=== PATIENT | male | born 1960 | race Caucasian/White ===

== ENCOUNTER 2019-03-07 07:51 | Day surgery (SDC) | payer BC ==
[2019-03-06 13:55] VITALS: BMI 24.9
[2019-03-07 09:52] VITALS: TEMP 97.9
[2019-03-07 12:16] VITALS: BP 116/71; PULSE 63
--- NOTE | 2019-03-10 14:12 | PATH ---
Surgical Pathology Report Patient Name: GRISELDA ARANA [facility]. Rec. #: [id number] /Age/Gender: 1960 (Age: 58) / M Account: [id number] Location: [facility]-ENDOSCOPY Taken: 03/07/2019 Received: 03/07/2019 Reported: 03/10/2019 Physicians: Jimmy Anthony M.D. Specimen(s) Received A: RECTAL POLYP B: COLON, RIGHT, POLYPS Clinical History Colon screening Postoperative diagnosis: Polyps, diverticulosis Final Diagnosis A. RECTAL POLYP, BIOPSY: HYPERPLASTIC POLYP. B. COLON, RIGHT, POLYPS, BIOPSY: HYPERPLASTIC POLYP(S). Electronically Signed Vira Alicia M.D. Gross Description A. Received in formalin, labeled "biopsy rectal polyp" is a hassan, irregular portion of soft tissue measuring 0.4 cm. in greatest dimension. The specimen is submitted in toto in one cassette. B. Received in formalin, labeled "biopsy right colon polyps" are 2 hassan, irregular portions of soft tissue averaging 0.5 cm. in greatest dimension. The specimens are submitted in toto in one cassette. DL/03/07/2019 saudi03/07/2019
== END 2019-03-07 10:35 | disposition home or self-care (01) ==
LOC: JASU-ENDO 07:51
PROVIDERS: ATTEND Internal Medicine Gastroenterology
PROC: 0DBP8ZX Excision of Rectum, Via Natural or Artificial Opening Endoscopic, Diagnostic (ICD-10-PCS; 2019-03-07)
PROC: 0DBK8ZX Excision of Ascending Colon, Via Natural or Artificial Opening Endoscopic, Diagnostic (ICD-10-PCS; principal; 2019-03-07 09:00)
DX: Z12.11 Encounter for screening for malignant neoplasm of colon (principal); K62.1 Rectal polyp; K64.8 Other hemorrhoids; K57.30 Diverticulosis of large intestine without perforation or abscess without bleeding; D12.2 Benign neoplasm of ascending colon
CPT/HCPCS: 88305-TC